=== PATIENT | male | born 1995 | race Caucasian/White ===

== ENCOUNTER 2018-01-18 23:32 | Inpatient (IN) | payer OTHER ==
[~2018-01-18] VITALS: Ht 180.3 cm; Wt 83.5 kg
[2018-01-18 23:42] VITALS: Ht 180.3 cm; Wt 83.5 kg
[2018-01-19 02:36] LABS: PLATELET COUNT 311 x10^3mcL (130-400)
[2018-01-19 02:38] LABS: BASOPHIL % 0.7 % (0-2); RED CELL DISTRIBUTION WIDTH 11.3 % (11.5-14.5)
[2018-01-19 02:47] LABS: CALCIUM 8.3 mg/dL (8.5-10.1); CARBON DIOXIDE 29.6 mmol/L (21-32); CHLORIDE SERUM 97 mmol/L (98-107); GFR1 > 60 mL/min; GLUCOSE SERUM 95 mg/dL (74-106); SODIUM SERUM 135 mmol/L (136-145)
[2018-01-19 03:05] LABS: POTASSIUM SERUM 2.6 mmol/L (3.5-5.1)
[2018-01-19 03:17] LABS: APPEARANCE CSF CLEAR; COLOR CSF COLORLESS; WBC CSF 0 /cumm (0-5)
[2018-01-19 03:18] LABS: APPEARANCE CSF CLEAR; COLOR CSF COLORLESS; RBC CSF 397 /cumm (0); RBC CSF 563 /cumm (0); WBC CSF 0 /cumm (0-5)
[2018-01-19 03:22] LABS: T3 TOTAL 1.01 ng/mL
[2018-01-19 03:42] LABS: MAGNESIUM 1.6 mg/dL (1.8-2.4); PHOSPHOROUS 3.7 mg/dL (2.5-4.9)
[2018-01-19 03:52] LABS: TOTAL PROTEIN CSF 43.3 mg/dL (15-45)
[2018-01-19 03:53] LABS: FREE T4 1.12 ng/dL (0.76-1.46); FREE THYROXINE INDEX 2.3 ug/dL (1.4-4.5); T4(THYROXINE) 6.7 ug/dL (4.7-13.3)
[2018-01-19 04:33] VITALS: BP 136/85
[2018-01-19 07:00] LABS: BASOPHIL % 0.4 % (0-2); PLATELET COUNT 226 x10^3mcL (130-400); RED CELL DISTRIBUTION WIDTH 11.8 % (11.5-14.5)
[2018-01-19 07:01] LABS: CALCIUM 7.8 mg/dL (8.5-10.1); CARBON DIOXIDE 26.9 mmol/L (21-32); CHLORIDE SERUM 99 mmol/L (98-107); CREATININE SERUM 0.8 mg/dL (0.7-1.3); GFR1 > 60 mL/min; GLUCOSE SERUM 102 mg/dL (74-106); PHOSPHOROUS 3.5 mg/dL (2.5-4.9); SODIUM SERUM 134 mmol/L (136-145)
[2018-01-19 07:06] LABS: POTASSIUM SERUM 2.7 mmol/L (3.5-5.1)
[2018-01-19 07:16] LABS: microscopic required? NO
[2018-01-19 08:34] VITALS: BP 127/72
[2018-01-19 09:15] LABS: UA SPECIFIC GRAVITY <=1.005 (1.005-1.035); urine erythrocyte NEGATIVE (NEGATIVE)
[2018-01-19 09:35] LABS: AMPHETAMINE QUAL UR NONE DETECTED (See below)
[2018-01-19 11:02] VITALS: BP 127/72
[2018-01-19 11:19] LABS: CALCIUM 8.6 mg/dL (8.5-10.1); CARBON DIOXIDE 29.7 mmol/L (21-32); CHLORIDE SERUM 106 mmol/L (98-107); GFR1 > 60 mL/min; GLUCOSE SERUM 85 mg/dL (74-106); POTASSIUM SERUM 3.9 mmol/L (3.5-5.1); SODIUM SERUM 142 mmol/L (136-145)
[2018-01-19 12:29] VITALS: BP 121/78
== END 2018-01-19 13:30 | disposition home or self-care (01) | DRG 728 ==
LOC: ED 23:32 → DU 01-19 02:32
PROVIDERS: Emergency Medicine; Family Medicine
DX: N41.9 Inflammatory disease of prostate, unspecified (principal); E87.1 Hypo-osmolality and hyponatremia; G43.909 Migraine, unspecified, not intractable, without status migrainosus; E87.6 Hypokalemia; E83.42 Hypomagnesemia; E83.51 Hypocalcemia; F12.10 Cannabis abuse, uncomplicated; Z68.25 Body mass index [BMI] 25.0-25.9, adult
CPT/HCPCS: 83880; 84439; 86788; 86789; J0696; J1956; J2001; J2405; J3475; J3480; J3490; J7030

== ENCOUNTER 2020-07-10 05:44 | Emergency (ER) | payer OTHER, BC ==
[~2020-07-10] VITALS: Ht 182.9 cm; Wt 88.0 kg
[2020-07-10 05:53] VITALS: Ht 182.9 cm; Wt 88.0 kg
[2020-07-10 09:25] VITALS: BP 132/67
== END 2020-07-10 09:25 | disposition home or self-care (01) ==
LOC: ED 05:44
DX: J45.901 Unspecified asthma with (acute) exacerbation (principal)
CPT/HCPCS: J1100